=== PATIENT | female | born 1955 | race Caucasian/White ===

== ENCOUNTER 2022-04-14 07:11 | Outpatient (CLI) | payer OTHER | END 2022-04-14 07:28 | disposition home or self-care (01) | LOC: RX STUDY 07:11 | PROVIDERS: ATTEND Surgery | DX: K57.20 Diverticulitis of large intestine with perforation and abscess without bleeding (principal); R10.84 Generalized abdominal pain; K63.2 Fistula of intestine; N82.3 Fistula of vagina to large intestine ==

== ENCOUNTER 2025-01-08 09:20 | Day surgery (SDC) | payer OTHER ==
[2025-01-08] MEDS ORDERED: MIDAZOLAM HCL 2 MG/2 ML VIAL IV ONE (17:15)
[2025-01-08] MEDS ORDERED: fentaNYL CITRATE 50 MCG/ML AMPUL IV PUSH ONE (17:15)
[2025-01-08] MEDS ORDERED: ONDANSETRON HCL 2 MG/ML VIAL IV ONE (17:15)
[2025-01-08] MEDS ORDERED: DIPHENHYDRAMINE HCL 50 MG/ML VIAL 1ML IV ONE (17:15)
== END 2025-01-08 18:25 | disposition home or self-care (01) ==
LOC: AMB-ENDOS 09:20
PROVIDERS: ATTEND Colon & Rectal Surgery
DX: R19.4 Change in bowel habit (principal); Z12.11 Encounter for screening for malignant neoplasm of colon; Q43.0 Meckel's diverticulum (displaced) (hypertrophic); K63.89 Other specified diseases of intestine

== ENCOUNTER 2025-02-19 10:09 | Day surgery (SDC) | payer OTHER ==
[2025-02-14 08:49] VITALS: BP 127/77
[2025-02-14 08:53] LABS: BASO % 1.4 % (0.1-1.2); EOS # 0.19 (0.04-0.54); EOS % 2.5 % (0.7-7.0); LYMPH # 1.68 (1.18-3.74); LYMPH % 21.9 % (19.3-53.1); MEAN PLATELET VOLUME 9.50 fl (9.4-12.4); MONO # 0.63 (0.24-0.82); MONO % 8.2 % (4.7-12.5); NEUT # 5.03 (1.56-6.13); NEUT % 65.5 % (34.0-71.1); RED CELL DISTRIBUTION WIDTH 12.8 % (11.6-14.4)
[2025-02-14 09:11] LABS: INR 1.02
[2025-02-14 09:12] LABS: URINE APPEARANCE Clear; URINE BILIRRUBIN Negative (NEGATIVE); URINE BLOOD Moderate; URINE COLOR Yellow; URINE KETONE Negative (NEGATIVE); URINE LEUKOCYTE Negative; URINE NITRATE Negative; URINE PROTEIN 30 (NEGATIVE); URINE UROBILINOGEN 0.2 E.U./dl
[2025-02-14 09:14] LABS: URINE BACTERIA 25.1 uL (0.0-1933); URINE EPITHELIAL CELLS 2.1 uL (0.0-38.8); URINE RBC 11.1 uL (0.0-20.8); URINE WBC 2.7 uL (0.0-23.2)
[2025-02-14 09:18] LABS: URINE CAST 0.00 uL (0.0-1.40); URINE GLUCOSE >=1000 MG/DL (NEGATIVE)
[2025-02-14 09:57] LABS: RH POSITIVE
[2025-02-14 10:28] LABS: ALT/SGPT 18.0 U/L (12-78); AST/SGOT 12.0 U/L (15-37); BILIRUBIN TOTAL 0.52 mg/dL (0.3-1.2); BUN CREA RATIO 32.0 (7.0-25.0); CREATININE SERUM 0.57 mg/dL (0.55-1.02); GFR 104.26; GLOBULINA 3.7 G/DL (2.4-3.5); GLUCOSE FASTING 116.0 mg/dL (65-100); OSMOLALITY SERUM 286.0 MOSM/KG (275-295); TSH 2.52 uIU/mL (0.358-3.74)
[~2025-02-19] VITALS: Ht 162.6 cm; Wt 56.7 kg
[~2025-02-19 10:09] MED LIST: FAMOTIDINE40 MG PO; LANTUS SOL100 UNIT/1; SIMVASTATIN5 MG; XIGDUO XR 10 M1 EAC1
[2025-02-19] MEDS ORDERED: METRONIDAZOLE/SODIUM CHLORIDE 500 MG/100 ML PIGGYBACK IV ONE (13:00)
[2025-02-19] MEDS ORDERED: CEFTRIAXONE SODIUM 2,000 MG VIAL IV ONE (13:00)
[2025-02-19] MEDS ORDERED: LIDOCAINE HCL 1%/EPINEPHRINE 20ML VIAL IJ ONE (13:00)
[2025-02-19] MEDS ORDERED: BUPIVACAINE HCL 30 ML VIAL IJ ONE (13:00)
[2025-02-19] MEDS ORDERED: MORPHINE SULFATE 4 MG/ML VIAL IV ONE (14:45)
[2025-02-19 22:29] VITALS: BP 110/54; O2SAT 99
== END 2025-02-19 17:50 | disposition home or self-care (01) ==
LOC: O/R 10:09 → SURH 10:09 → CIR.AMB 10:09 → SURH 10:30 → CIR.AMB 17:50 → O/R 17:50
PROVIDERS: ATTEND Colon & Rectal Surgery
DX: K56.51 Intestinal adhesions [bands], with partial obstruction (principal); K62.4 Stenosis of anus and rectum; K56.690 Other partial intestinal obstruction; K57.20 Diverticulitis of large intestine with perforation and abscess without bleeding